=== PATIENT | male | born 1965 | race Caucasian/White ===

== ENCOUNTER 2017-04-24 22:57 | Inpatient (IN) | payer MEDICAID ==
[~2017-04-24] VITALS: Ht 175.3 cm; Wt 82.6 kg
[2017-04-24] MEDS ORDERED: MORPHINE SULFATE 2 MG/1 ML DISP.SYRIN IV ONE (23:15)
[2017-04-24] MEDS ORDERED: IV NORMAL SALINE 1000 ML BAG IV ONE (23:15)
[2017-04-24] MEDS ORDERED: ONDANSETRON 4 MG/2 ML VIAL IV ONE (23:15)
[2017-04-24] MEDS ORDERED: PANTOPRAZOLE SODIUM 40 MG VIAL IV ONE (23:15)
--- NOTE | 2017-04-24 23:15 | NUR ---
Patient brought in by [facility] fro c/o N/V and diarrhea x2 days with abdominal pain.
[2017-04-24] MEDS ORDERED: PERP4TAB11 PO (23:17)
[2017-04-24] MEDS ORDERED: FLUO20CA36 PO (23:17)
[2017-04-24] MEDS ORDERED: PANTOPRAZOLE SODIUM 40 MG VIAL ONE (23:40)
[2017-04-24] MEDS ORDERED: ONDANSETRON 4 MG/2 ML VIAL ONE (23:40)
[2017-04-24] MEDS ORDERED: MORPHINE SULFATE 4 MG/1 ML DISP.SYRIN ONE (23:40)
[2017-04-24 23:47] LABS: BASOPHILS # (AUTO) 0.1 K/uL (0.0-8.0); BASOPHILS % (AUTO) 0.5 % (0.0-2.0); EOSINOPHILS # (AUTO) 0.1 K/uL (0.0-0.7); EOSINOPHILS % (AUTO) 0.4 % (0.0-7.0); HEMATOCRIT 35.5 % (40-50); HEMOGLOBIN 11.6 G/DL (14.0-18.0); LYMPHOCYTES # (AUTO) 0.7 K/UL (0.8-4.8); LYMPHOCYTES % (AUTO) 5.1 % (20.5-51.5); MEAN CORPUSCULAR HEMOGLOBIN 30.2 UUG (27.0-31.0); MEAN CORPUSCULAR HGB CONC 33 g/dL (32.0-37.0); MEAN CORPUSCULAR VOLUME 92.1 FL (82.0-92.0); MONOCYTES # (AUTO) 1.2 K/UL (0.1-1.30); MONOCYTES % (AUTO) 8.7 % (0.0-11.0); NEUTROPHILS # (AUTO) 12.2 K/UL (1.8-8.9); NEUTROPHILS % (AUTO) 85.3 % (38.5-71.5); PLATELET COUNT (AUTO) 334 K/UL (150-450); RED BLOOD CELL COUNT(AUTO) 3.86 MIL/UL (4.7-6.1); WHITE BLOOD COUNT (AUTO) 14.3 K/UL (4.0-11.2)
[2017-04-24 23:58] LABS: BILIRUBIN,DIRECT 0.1 mg/dL (0.0-0.2); BILIRUBIN,TOTAL 0.3 mg/dL (0.2-1.0); CREATININE 0.8 mg/dL (0.6-1.3); POTASSIUM 3.4 mmol/L (3.5-5.1); TOTAL PROTEIN, SERUM 7.2 g/dL (6.4-8.2)
[2017-04-25] MEDS ORDERED: IV NORMAL SALINE 1000 ML BAG IV ONE (00:45)
[2017-04-25] MEDS ORDERED: MORPHINE SULFATE 4 MG/1 ML DISP.SYRIN IV ONE (00:45)
[2017-04-25] MEDS ORDERED: PHENYTOIN SODIUM IV 1,000 MG in IV NORMAL SALINE 100 ML IV ONE (00:45)
[2017-04-25] MEDS ORDERED: PHENYTOIN SODIUM 250 MG/5 ML VIAL IV ONE (00:54)
[2017-04-25] MEDS ORDERED: MORPHINE SULFATE 4 MG/1 ML DISP.SYRIN ONE (00:59)
--- NOTE | 2017-04-25 03:10 | NUR ---
CALLED FOR M/S BED, ASSIGNED TO 221.
[2017-04-25] MEDS ORDERED: MORPHINE SULFATE 2 MG/1 ML DISP.SYRIN IV ONE (03:15)
[2017-04-25] MEDS ORDERED: MORPHINE SULFATE 2 MG/1 ML DISP.SYRIN ONE (03:25)
--- NOTE | 2017-04-25 03:44 | NUR ---
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
[2017-04-25 04:01] LABS: *BILIRUBIN,URIN NEGATIVE (NEGATIVE); *BLOOD, URINE Trace-lysed (NEGATIVE); *COLOR,URINE YELLOW (YELLOW); *KETONES,URINE NEGATIVE (NEGATIVE); *PROTEIN,URINE NEGATIVE (NEGATIVE); *UROBILINOGEN,URINE 0.2 E.U./dl (NORMAL); LEUKOCYTE ESTERASE ,URINE NEGATIVE (NEGATIVE); NITRITE, URINE NEGATIVE (NEGATIVE); PH,URINE 5.5 (5.0-8.0)
[2017-04-25 04:09] LABS: *CLARITY,URINE HAZY (CLEAR); UGLUCOSE 2+ (NEGATIVE)
[2017-04-25 04:19] LABS: BACTERIA,URINE NONE SEEN /HPF (NONE SEEN); RBC,URINE 0-3 /HPF (0-3); SQUAMOUS EPITHELIAL CELL,UR FEW /HPF (NONE SEEN); WBC,URINE 0-3 /HPF (0-3)
[2017-04-25] MEDS ORDERED: IV NS 1000 ML 1,000 ML IV PRN (04:52)
[2017-04-25] MEDS ORDERED: MAGNESIUM HYDROXIDE 30 ML LIQUID UDC PO PRN (05:00)
[2017-04-25] MEDS ORDERED: HYDROMORPHONE 1 MG/1 ML DISP.SYRIN IV PRN (05:00)
[2017-04-25] MEDS ORDERED: HYDROCODONE/APAP 10-325 MG TABLET PO PRN (05:00)
[2017-04-25] MEDS ORDERED: Z GUARD REMEDY PASTE 57 GM TUBE TOP PRN (05:00)
--- NOTE | 2017-04-25 05:05 | NUR ---
TRANSFERED TO 2ND FLOOR MED SURG
[2017-04-25 05:22] VITALS: BP 119/62
[2017-04-25] MEDS ORDERED: HYDROMORPHONE 1 MG/1 ML DISP.SYRIN ONE (05:38)
[2017-04-25] MEDS ORDERED: ONDANSETRON 4 MG/2 ML VIAL ONE (06:03)
--- NOTE | 2017-04-25 06:43 | NUR ---
PT RECEIVED FROM ED ACCOMPANIED BY ER STAFF DIAGNOSIS ABDOMINAL PAIN. PT IS AOX4 AMBULATORY AND CONTINENT OF BOWEL AND BLADDER. PT OBSERVED ANXIOUS AND NAUSEATED. SKIN IS INTACT. HEP LOCK IN RIGHT WRIST #20. NO ACUTE DISTRESS NOTED. REPORTS PAIN IN ABDOMEN 05/19, WILL NOTIFY . SAFETY MEASURES MAINTAINED.
[2017-04-25] MEDS: ACETAMINOPHEN 325 MG TABLET PO PRN (06:46)
[2017-04-25] MEDS: ONDANSETRON 4 MG/2 ML VIAL IV PRN ×2 (06:46→17:57)
[2017-04-25 06:52] LABS: PHOSPHOROUS 2.4 mg/dL (2.5-4.9)
[2017-04-25] MEDS ORDERED: ACETAMINOPHEN 325 MG TABLET ONE (06:57)
--- NOTE | 2017-04-25 07:32 | NUR ---
MAGNESIUM LEVEL 1.0 WILL NOTIFY
[2017-04-25] MEDS: PANTOPRAZOLE SODIUM 40 MG TABLET.DR PO SCH (08:04)
[2017-04-25 10:31] LABS: BASOPHILS # (AUTO) 0.1 K/uL (0.0-8.0); BASOPHILS % (AUTO) 0.8 % (0.0-2.0); EOSINOPHILS % (AUTO) 0.3 % (0.0-7.0); HEMOGLOBIN 10.5 G/DL (14.0-18.0); LYMPHOCYTES % (AUTO) 7.9 % (20.5-51.5); MEAN CORPUSCULAR HEMOGLOBIN 31.1 UUG (27.0-31.0); MEAN CORPUSCULAR HGB CONC 34 g/dL (32.0-37.0); MEAN CORPUSCULAR VOLUME 92.8 FL (82.0-92.0); MONOCYTES # (AUTO) 0.5 K/UL (0.1-1.30); MONOCYTES % (AUTO) 3.7 % (0.0-11.0); NEUTROPHILS # (AUTO) 11.6 K/UL (1.8-8.9); NEUTROPHILS % (AUTO) 87.3 % (38.5-71.5); PLATELET COUNT (AUTO) 255 K/UL (150-450); WHITE BLOOD COUNT (AUTO) 13.2 K/UL (4.0-11.2)
[2017-04-25] MEDS: MAGNESIUM SULFATE/D5W 100 ML IV SCH ×4 (10:32→20:19)
[2017-04-25] MEDS: HYDROMORPHONE 1 MG/1 ML DISP.SYRIN IV PRN ×4 (10:32→22:02)
[2017-04-25 10:36] LABS: THYROID STIMULATING HORMONE 4.114 mIU/mL (0.358-3.740)
[2017-04-25 10:48] LABS: HEMATOCRIT 31.4 % (40-50); RED BLOOD CELL COUNT(AUTO) 3.38 MIL/UL (4.7-6.1)
[2017-04-25 11:02] LABS: BILIRUBIN,TOTAL 0.5 mg/dL (0.2-1.0); CREATININE 0.8 mg/dL (0.6-1.3); POTASSIUM 3.8 mmol/L (3.5-5.1); TOTAL PROTEIN, SERUM 5.8 g/dL (6.4-8.2)
[2017-04-25] MEDS ORDERED: NEUTRA PHOS PACKET PO ONE (11:30)
--- NOTE | 2017-04-25 11:30 | NUR ---
PATIENT SEEN AND EXAMINED BY ALBA WESTBROOK PUNCHER AND SHE IS AWARE THAT PATIENTS IV SITE INFILTERATED AND PATIENT IS A VERY HARD STICK AND WE HAVE BEEN UNABLE TO INSERT AND SHE STATED TO CALL FOR A MID LINE.YOANNA SITE WORKER NOTIFIED AND HE STATED WILL MAKE THE CALL.
--- NOTE | 2017-04-25 11:45 | NUR ---
CALL RECEIVED FROM [facility]SEA HOLDER MID LINE NURSE AND HE STATED THAT HE WILL NOT BE ABLE TO COME ANYTIME SOON STATED WILL ARRANGE TO SEE WHO COULD COMR TO INSERT THE MID LINE.MEANWHILE PATIENT HAS NO IV ASSESS AND HIS MAGNESSIUM IS ON HOLD AT THIS TIME.
[2017-04-25 11:53] LABS: BAND % (MANUAL) 18 % (0-10); EOSINOPHILS % (MANUAL) 1 % (0-8); LYMPHOCYTES % (MANUAL) 9 % (20-40); MONOCYTES % (MANUAL) 7 % (2-10); NEUTROPHILS % (MANUAL) 65 % (42-75)
[2017-04-25] MEDS: PATIENT MAY USE OWN MED- MD OK PO SCH (12:00)
[2017-04-25 12:26] VITALS: BP 106/68
--- NOTE | 2017-04-25 12:58 | NUR ---
NEW ORDER NOTED TO SCAN THE BLADDER AND TO INSERT A MUÑOZ IF MORE THAN 260 ML.PATIENT VOIDED ABOUT 75 ML IN THE URINAL AND THE BLADDER SCANED AND IT HAS 300 ML SO MUÑOZ CATH INSERTED AT THIS TIME.
--- NOTE | 2017-04-25 13:30 | NUR ---
LACTIC ACID IS 2.3 RECEIVED FROM THE LAB AND ALBA MORTICIAN [employer]IES SALES REPRESENTATIVE NOTIFIED.
[2017-04-25] MEDS: METRONIDAZOLE 500 MG/NS 100ML 500 MG in PREMIXED 1 EACH IV SCH ×2 (14:00→22:01)
[2017-04-25] MEDS: MULTIVITAMINS,THERAPEUTIC TABLET PO SCH (14:11)
[2017-04-25] MEDS: FOLIC ACID 1 MG TABLET PO SCH (14:11)
[2017-04-25] MEDS: THIAMINE HCL 100 MG TABLET PO SCH (14:11)
--- NOTE | 2017-04-25 14:36 | NUR ---
MID LINE INSERTED TO HIS RIGHT UPPER ARM AND ITS ONLY ONE LUMEN AND HIS IV ANTIBIOTICS STARTED AND THEN WILL BE FOLLOWED WITH THE MAGNESSIUM
[2017-04-25] MEDS: LEVOFLOXACIN 500 MG/D5W 500 MG in PREMIXED 1 EACH IV SCH (15:16)
[2017-04-25] MEDS: MAG HYDROX/AL HYDROX/SIMETH 30 ML LIQUID UDC PO PRN ×2 (15:37→21:06)
[2017-04-25 16:45] VITALS: BP 104/65
[2017-04-25 17:52] LABS: *OCCULT BLOOD STOOL POSITIVE (NEGATIVE)
--- NOTE | 2017-04-25 18:00 | NUR ---
REMAIN ON ANTIBIOTICS ORDERED WITH NO ADVERSE OR ALLERGIC REACTIONS AT THIS TIME.CONTINUE ON PAIN MEDICATIONS ORDERED AND HELPFUL.
--- NOTE | 2017-04-25 20:00 | NUR ---
RECEIVED PATIENT AWAKE IN BED. IVF INFUSING WELL TO RIGHT UPPER ARM, MID-LINE. NO C/O PAIN AT THIS TIME, NO RESP. DISTRESS NOTED. CALL LIGHT IN REACH. ALL NEEDS ATTENDED.
[2017-04-25] MEDS: PHENYTOIN SODIUM EXTENDED 100 MG CAPSULE.SA PO SCH (21:07)
[2017-04-25 21:34] VITALS: BP 99/65
[2017-04-25] MEDS: IV NS 1000 ML 1,000 ML IV PRN (23:19)
[2017-04-26] MEDS: HYDROMORPHONE 1 MG/1 ML DISP.SYRIN IV PRN ×6 (02:13→22:32)
[2017-04-26] MEDS: METRONIDAZOLE 500 MG/NS 100ML 500 MG in PREMIXED 1 EACH IV SCH ×3 (05:18→21:00)
[2017-04-26 05:24] VITALS: BP 103/68
[2017-04-26] MEDS: PANTOPRAZOLE SODIUM 40 MG TABLET.DR PO SCH (06:17)
--- NOTE | 2017-04-26 06:48 | NUR ---
PATIENT AWAKE IN BED. WAS PREVIOUSLY MEDICATED FOR PAIN. NO C/O AT THIS TIME. IVF INFUSING WELL. VSS. CALL LIGHT IN REACH. ALL NEEDS ATTENDED. WILL CONTINUE TO MONITOR,
[2017-04-26 07:15] LABS: BASOPHILS # (AUTO) 0.1 K/uL (0.0-8.0); BASOPHILS % (AUTO) 0.9 % (0.0-2.0); EOSINOPHILS # (AUTO) 0.2 K/uL (0.0-0.7); EOSINOPHILS % (AUTO) 1.3 % (0.0-7.0); HEMATOCRIT 31.8 % (40-50); HEMOGLOBIN 10.7 G/DL (14.0-18.0); LYMPHOCYTES # (AUTO) 2.2 K/UL (0.8-4.8); LYMPHOCYTES % (AUTO) 14.7 % (20.5-51.5); MEAN CORPUSCULAR HEMOGLOBIN 31.1 UUG (27.0-31.0); MEAN CORPUSCULAR HGB CONC 34 g/dL (32.0-37.0); MEAN CORPUSCULAR VOLUME 92.2 FL (82.0-92.0); MONOCYTES % (AUTO) 6.7 % (0.0-11.0); NEUTROPHILS # (AUTO) 11.3 K/UL (1.8-8.9); NEUTROPHILS % (AUTO) 76.4 % (38.5-71.5); PLATELET COUNT (AUTO) 325 K/UL (150-450); RED BLOOD CELL COUNT(AUTO) 3.45 MIL/UL (4.7-6.1); WHITE BLOOD COUNT (AUTO) 14.8 K/UL (4.0-11.2)
[2017-04-26 07:58] LABS: BILIRUBIN,TOTAL 0.5 mg/dL (0.2-1.0); CREATININE 0.8 mg/dL (0.6-1.3); MAGNESIUM 2.2 mg/dL (1.8-2.4); PHOSPHOROUS 2.1 mg/dL (2.5-4.9); POTASSIUM 3.9 mmol/L (3.5-5.1)
[2017-04-26] MEDS ORDERED: PERPHENAZINE 4 MG PO SCH (09:00)
[2017-04-26] MEDS: MULTIVITAMINS,THERAPEUTIC TABLET PO SCH (09:02)
[2017-04-26] MEDS: THIAMINE HCL 100 MG TABLET PO SCH (09:02)
[2017-04-26] MEDS: FOLIC ACID 1 MG TABLET PO SCH (09:02)
[2017-04-26] MEDS: FLUOXETINE HCL 20 MG CAPSULE PO SCH (09:02)
[2017-04-26] MEDS: IV NS 1000 ML 1,000 ML IV PRN ×2 (09:54→20:54)
--- NOTE | 2017-04-26 10:00 | NUR ---
SPOKE WITH DR BEGUM AND NOTIFIED HIM THAT PER ALBA IVY THE PATIENT IS SCHEDULED TO HAVE A GI CONSULT WITH DR CLEMENTE TODAY.
[2017-04-26 11:21] VITALS: BP 100/66
[2017-04-26] MEDS: LEVOFLOXACIN 500 MG/D5W 500 MG in PREMIXED 1 EACH IV SCH (11:25)
[2017-04-26] MEDS: PATIENT MAY USE OWN MED- MD OK PO SCH (12:44)
--- NOTE | 2017-04-26 14:43 | NUR ---
PATIENT SEEN AND EXAMINED BY DR BEGUM WITH NEW ORDERS FOR AM LABS AND NOTED
[2017-04-26 15:03] VITALS: BP 102/77
[2017-04-26] MEDS ORDERED: NEUTRA PHOS PACKET PO ONE (16:00)
--- NOTE | 2017-04-26 18:00 | NUR ---
REMAIN ON IV ATB ORDERED WITH NO ADVERSE OR ALLERGIC REACTIONS AT THIS TIME.PAIN MEDICATIONS ORDERED NUTRIPHOS GIVEN ORDERED WITH PHOS LEVEL OF 2.1
[2017-04-26 20:00] VITALS: BP 97/51
[2017-04-26] MEDS: PHENYTOIN SODIUM EXTENDED 100 MG CAPSULE.SA PO SCH (20:54)
[2017-04-26] MEDS: ACETAMINOPHEN 325 MG TABLET PO PRN (20:54)
[2017-04-27] MEDS: HYDROMORPHONE 1 MG/1 ML DISP.SYRIN IV PRN ×6 (02:33→22:17)
[2017-04-27] MEDS: ACETAMINOPHEN 325 MG TABLET PO PRN ×3 (04:10→19:38)
[2017-04-27 05:05] VITALS: BP 109/55
[2017-04-27] MEDS: METRONIDAZOLE 500 MG/NS 100ML 500 MG in PREMIXED 1 EACH IV SCH ×3 (05:12→21:00)
--- NOTE | 2017-04-27 06:26 | NUR ---
PT SLEPT INTERMITTENTLY, IN NO ACUTE DISTRESS. ASSISTED PATIENT WITH TOILETING NEEDS. PAIN MANAGEMENT Q4H ORDERED, IVF RUNNING, NO INFILTRATION NOTED. IV ANTIBIOTIC ADMINISTERED ORDERED, NO ADVERSE REACTION NOTED. CALL LIGHT WITHIN REACH, BED ALARM ON. WILL CONTINUE TO MONITOR.
[2017-04-27] MEDS: PANTOPRAZOLE SODIUM 40 MG TABLET.DR PO SCH (06:29)
[2017-04-27 07:18] LABS: BASOPHILS % (AUTO) 0.9 % (0.0-2.0); EOSINOPHILS # (AUTO) 0.2 K/uL (0.0-0.7); EOSINOPHILS % (AUTO) 3.7 % (0.0-7.0); HEMATOCRIT 29.8 % (40-50); LYMPHOCYTES # (AUTO) 1.4 K/UL (0.8-4.8); LYMPHOCYTES % (AUTO) 25.6 % (20.5-51.5); MEAN CORPUSCULAR HEMOGLOBIN 31.2 UUG (27.0-31.0); MEAN CORPUSCULAR HGB CONC 34 g/dL (32.0-37.0); MONOCYTES # (AUTO) 0.4 K/UL (0.1-1.30); MONOCYTES % (AUTO) 8.1 % (0.0-11.0); NEUTROPHILS # (AUTO) 3.4 K/UL (1.8-8.9); NEUTROPHILS % (AUTO) 61.7 % (38.5-71.5); PLATELET COUNT (AUTO) 298 K/UL (150-450)
[2017-04-27 07:27] LABS: WHITE BLOOD COUNT (AUTO) 5.4 K/UL (4.0-11.2)
--- NOTE | 2017-04-27 08:00 | NUR ---
awake alert and oriented, states still has diarrhea- on isolation for c diff, explained plan of care- verbalized understanding, ambulatory, states pain in abdomen lesser 3/10, call light within reach
[2017-04-27] MEDS: FOLIC ACID 1 MG TABLET PO SCH (08:28)
[2017-04-27] MEDS: FLUOXETINE HCL 20 MG CAPSULE PO SCH (08:28)
[2017-04-27] MEDS: THIAMINE HCL 100 MG TABLET PO SCH (08:28)
[2017-04-27] MEDS: MULTIVITAMINS,THERAPEUTIC TABLET PO SCH (08:29)
[2017-04-27 08:37] LABS: CREATININE 0.7 mg/dL (0.6-1.3); POTASSIUM 3.9 mmol/L (3.5-5.1)
[2017-04-27] MEDS: IV NS 1000 ML 1,000 ML IV PRN ×2 (10:02→20:59)
--- NOTE | 2017-04-27 10:46 | NUR ---
medicated with Dilaudid 1mg iv for c/o abdominal pain 05/19- meication instructions given- verbalized understanding, call light within reach
[2017-04-27 12:01] VITALS: BP 99/70
[2017-04-27] MEDS: PATIENT MAY USE OWN MED- MD OK PO SCH (12:21)
[2017-04-27] MEDS: LEVOFLOXACIN 500 MG TABLET PO SCH (12:21)
[2017-04-27 15:00] VITALS: BP 98/52
--- NOTE | 2017-04-27 18:40 | NUR ---
resting in bed, had 1 diarrheal stool this am, no distress noted, all needs attended, contact isolation for c diff observed, call light within reach
[2017-04-27 20:00] VITALS: BP 102/63
[2017-04-27] MEDS: PHENYTOIN SODIUM EXTENDED 100 MG CAPSULE.SA PO SCH (21:00)
[2017-04-28] MEDS: ONDANSETRON 4 MG/2 ML VIAL IV PRN ×2 (00:06→09:13)
[2017-04-28] MEDS: HYDROMORPHONE 1 MG/1 ML DISP.SYRIN IV PRN ×2 (04:20→09:06)
[2017-04-28 04:43] VITALS: BP 120/70
[2017-04-28] MEDS: METRONIDAZOLE 500 MG/NS 100ML 500 MG in PREMIXED 1 EACH IV SCH ×2 (05:12→14:00)
--- NOTE | 2017-04-28 06:00 | NUR ---
PT SLEPT INTERMITTENTLY, IN NO ACUTE DISTRESS. NO C/O OF SOB, CHEST PAIN. PT STILL C/O ABDOMINAL DISCOMFORT, FREQUENTLY ASKS FOR PAIN MED Q4H, GIVEN ORDERED. IVF RUNNING, MIDLINE PATENT/INTACT, NO INFILTRATION NOTED. IV ANTIBIOTIC GIVEN ORDERED, NO ADVERSE REACTION NOTED. CALL LIGHT WITHIN REACH, BED ALARM ON. WILL CONTINUE TO MONITOR.
[2017-04-28] MEDS: PANTOPRAZOLE SODIUM 40 MG TABLET.DR PO SCH (06:01)
[2017-04-28 06:56] LABS: BASOPHILS # (AUTO) 0.1 K/uL (0.0-8.0); BASOPHILS % (AUTO) 1.1 % (0.0-2.0); EOSINOPHILS # (AUTO) 0.2 K/uL (0.0-0.7); EOSINOPHILS % (AUTO) 4.4 % (0.0-7.0); LYMPHOCYTES # (AUTO) 1.6 K/UL (0.8-4.8); LYMPHOCYTES % (AUTO) 32.9 % (20.5-51.5); MEAN CORPUSCULAR HEMOGLOBIN 30.7 UUG (27.0-31.0); MEAN CORPUSCULAR HGB CONC 33 g/dL (32.0-37.0); MEAN CORPUSCULAR VOLUME 93.4 FL (82.0-92.0); MONOCYTES # (AUTO) 0.4 K/UL (0.1-1.30); MONOCYTES % (AUTO) 7.1 % (0.0-11.0); NEUTROPHILS # (AUTO) 2.7 K/UL (1.8-8.9); NEUTROPHILS % (AUTO) 54.5 % (38.5-71.5)
[2017-04-28 06:57] LABS: CREATININE 0.7 mg/dL (0.6-1.3); POTASSIUM 3.8 mmol/L (3.5-5.1)
[2017-04-28 07:06] LABS: HEMATOCRIT 36.8 % (40-50); HEMOGLOBIN 12.1 G/DL (14.0-18.0); RED BLOOD CELL COUNT(AUTO) 3.94 MIL/UL (4.7-6.1)
[2017-04-28 07:07] LABS: PLATELET COUNT (AUTO) 444 K/UL (150-450)
--- NOTE | 2017-04-28 07:55 | NUR ---
Patient very needy, has abd pain and has not received pain meds. Informed that night nurse administered Dilaudid 1 mg IV at 0430. is still in pain. Administered [place] X1 tab at this time. Stated wants his Dilaudid at 8:30. had one bout of loose stools 15 minutes ago. BSC placed at deside per ALEXANDRA Bocanegra. WIll continue to monitor.
--- NOTE | 2017-04-28 09:00 | NUR ---
Patient yelling and screaming at me, "where's my pain shot?" I informed him I will get his Dilaudid now, I explained I got busy with another patient who was in distressed. He sated he heard me goofing off next door, yelled profanity, stated "Do your F---- job and get me my pain med!!!" I administered Dilaudid 1mg IVP at 09:13 AM along with P.O. meds. Patient is vulgar and very impatient. After administering all meds, stated he wanted another nurse that doesn't goof off and does her job. Informed charge nurse of all of the above. I repeatedly apologized for the delay, after 5 minutes, he also apologized and stated, my next dose better be on time!
[2017-04-28] MEDS: FLUOXETINE HCL 20 MG CAPSULE PO SCH (09:04)
[2017-04-28] MEDS: THIAMINE HCL 100 MG TABLET PO SCH (09:04)
[2017-04-28] MEDS: FOLIC ACID 1 MG TABLET PO SCH (09:04)
[2017-04-28] MEDS: MULTIVITAMINS,THERAPEUTIC TABLET PO SCH (09:04)
[2017-04-28] MEDS: IV NS 1000 ML 1,000 ML IV PRN (09:13)
[2017-04-28] MEDS ORDERED: HYDROMORPHONE 1 MG/1 ML DISP.SYRIN IV PRN (10:30)
[2017-04-28 11:12] VITALS: BP 108/64
[2017-04-28] MEDS: LEVOFLOXACIN 500 MG TABLET PO SCH (11:46)
[2017-04-28] MEDS: ACETAMINOPHEN 325 MG TABLET PO PRN (11:46)
[2017-04-28] MEDS: PATIENT MAY USE OWN MED- MD OK PO SCH (11:47)
[2017-04-28] MEDS ORDERED: METR500T PO (12:08)
[2017-04-28] MEDS ORDERED: ONDA4TAB5 PO (12:08)
--- NOTE | 2017-04-28 14:00 | NUR ---
Did not admin Flagyl IVPB at this time due to D/C'd midline due to patient D/C'd home.
--- NOTE | 2017-04-28 14:15 | NUR ---
D/c'd marquez cath and right upper arm double lumen midline. Patient voided 300 ml post D/C F/C. No active bleeding from P.W.. s/p d/cd midline. Applied pressure dressing, taped in place. Reviewed belonging sheet, all belonging with patient, signed and original given. Copy placed in chart. Reviewed RX X2, RX given to patient, copy in chart. Verb understanding of all D/C instructions, print outs given. Escorted patient to pharmacy to retrive own medications. Patient left in lobby per his request to wait for brother to arrive. States pain/discomfort minimal 10/19 at this time, stated because he hasn't eaten anything except liquids. Will be having late lunch with his brother.
== END 2017-04-28 14:30 | disposition home or self-care (01) | DRG 248 ==
LOC: ER 22:58 → MED 04-25 04:56
PROVIDERS: ADMIT Nurse Practitioner Acute Care; ATTEND Nurse Practitioner Acute Care
PROC: 05H533Z Insertion of Infusion Device into Right Subclavian Vein, Percutaneous Approach (ICD-10-PCS; principal; 2017-04-25)
DX: A04.7 Enterocolitis due to Clostridium difficile (principal); E87.2 Acidosis; E44.0 Moderate protein-calorie malnutrition; J84.10 Pulmonary fibrosis, unspecified; I48.91 Unspecified atrial fibrillation; K65.4 Sclerosing mesenteritis; F32.9 Major depressive disorder, single episode, unspecified; F20.9 Schizophrenia, unspecified; G40.909 Epilepsy, unspecified, not intractable, without status epilepticus; K52.9 Noninfective gastroenteritis and colitis, unspecified; Z91.14 Patient's other noncompliance with medication regimen; Z88.0 Allergy status to penicillin; Z80.1 Family history of malignant neoplasm of trachea, bronchus and lung; D53.9 Nutritional anemia, unspecified; R33.9 Retention of urine, unspecified; K40.90 Unilateral inguinal hernia, without obstruction or gangrene, not specified as recurrent; R73.9 Hyperglycemia, unspecified; K80.20 Calculus of gallbladder without cholecystitis without obstruction; Z76.5 Malingerer [conscious simulation]; Z79.899 Other long term (current) drug therapy; E87.6 Hypokalemia; D63.8 Anemia in other chronic diseases classified elsewhere
CPT/HCPCS: 36415; 36569; 71010; 82378; 83605; 83690; 83735; 84100; 84443; 84481; 85025; 85730; 86301; 86625; 87040; 87046; 87086; 87177; 89055; 93005; 97161; A4663; C9113; J1165; J1170; J1956; J2270; J2405; J3475; J3490; J7030; J7060